=== PATIENT | female | born 1990 | race Caucasian/White ===

== ENCOUNTER 2020-12-06 08:04 | Inpatient (IN) | payer MEDICAID ==
[~2020-12-06] VITALS: Ht 177.8 cm; Wt 84.4 kg
[2020-12-06] MEDS ORDERED: NALOXONE HCL 0.4 MG/ML 1ML VIAL IM PRN (08:30)
[2020-12-06] MEDS ORDERED: METHYLERGONOVINE MALEATE 0.2 MG/ML IM PRN (08:30)
[2020-12-06] MEDS ORDERED: MISOPROSTOL 100MCG TABLET VG SCH (08:30)
[2020-12-06] MEDS ORDERED: CARBOPROST TROMETHAMINE 250 MCG/ML AMPUL IM PRN (08:30)
[2020-12-06] MEDS ORDERED: MINERAL OIL 30ML BOTTLE PO NR (08:30)
[2020-12-06] MEDS ORDERED: LIDOCAINE HCL 1% 20ML VIAL (Pyxis) INJ INFIL SCH (08:30)
[2020-12-06] MEDS ORDERED: BUTORPHANOL TARTRATE 2 MG/ML VIAL IV PRN (08:30)
[2020-12-06] MEDS ORDERED: PENICILLIN G POTASSIUM 5 MMU in DEXT 5% WATER 100 ML IV NR (09:00)
[2020-12-06 10:00] LABS: BASOPHILS % 0.2 % (0.0-2.0); EOSINOPHILS % 1.7 % (0.0-5.0); HEMATOCRIT. 37.3 % (36.0-48.0); HEMOGLOBIN. 12.9 g/dL (12.0-16.0); MEAN CORPUSCULAR VOLUME 89.6 fL (81.0-99.0); MEAN PLATELET VOLUME 9.6 fl (7.4-10.4); MONOCYTES % 8.1 % (2.0-8.0); PLATELET 215 x1000/uL (130-400); RED BLOOD CELL COUNT 4.17 mill/uL (4.2-5.4); RED CELL DISTRIBUTION WIDTH 13.7 % (11.6-14.6)
[2020-12-06 10:10] LABS: INR 0.9; PARTIAL THROMBOPLASTIN TIME 25.9 sec (23.4-31.0); PROTHROMBIN TIME 9.8 sec (9.6-11.0)
[2020-12-06 10:18] LABS: CLARITY URINE CLOUDY (CLEAR); COLOR URINE YELLOW (YELLOW); KETONES URINE NEGATIVE (NEGATIVE); LEUKOCYTE ESTERASE URINE 3+ (NEGATIVE); NITRITE URINE NEGATIVE (NEGATIVE); OCCULT BLOOD URINE NEGATIVE (NEGATIVE); PH URINE 7.5 (4.5-8.0); PROTEIN URINE NEGATIVE (NEGATIVE); SPECIFIC GRAVITY URINE 1.013 (1.005-1.030); UROBILINOGEN URINE 0.2 E.U./dL (0.2-1.0)
[2020-12-06 10:57] LABS: *AMPHETAMINES SCREEN URINE NEGATIVE (NEGATIVE); *BARBITURATES SCREEN URINE NEGATIVE (NEGATIVE); *BENZODIAZEPINES SCREEN URINE NEGATIVE (NEGATIVE); *COCAINE SCREEN URINE NEGATIVE (NEGATIVE); METHADONE URINE SCREEN NEGATIVE (NEGATIVE)
[2020-12-06 10:58] LABS: CANNABINOID URINE SCREEN NEGATIVE (NEGATIVE); OPIATES URINE SCREEN NEGATIVE (NEGATIVE); PHENCYCLIDINE URINE SCREEN NEGATIVE (NEGATIVE)
[2020-12-06] MEDS: DEXT 5%/LR + PITOCIN 20UNITS/L 1,000 ML IV SCH (11:02)
[2020-12-06] MEDS: LACTATED RINGERS 1,000 ML IV SCH ×3 (11:03→23:28)
[2020-12-06 12:57] LABS: HEPATITIS B SURFACE ANTIGEN NEGATIVE
[2020-12-06] MEDS ORDERED: ROPIVACAINE HCL 2MG/ML (0.2%) 200ML BOTTLE IR ONE (21:30)
[2020-12-06] MEDS ORDERED: ROPIVACAINE HCL/PF EPIDURAL 200 ML EPI PRN (21:30)
[2020-12-06] MEDS ORDERED: FENTANYL CITRATE/PF 50MCG/ML 2ML VIAL ONE (21:33)
[2020-12-06] MEDS ORDERED: BUPIVACAINE HCL/PF 0.25% (2.5MG/ML) 10ML ONE (21:33)
[2020-12-06] MEDS ORDERED: SODIUM CHLORIDE 0.9% 10ML VIAL ONE (21:33)
[2020-12-06] MEDS: PENICILLIN G POTASSIUM 2.5 MMU in DEXTROSE 5% WATER 50 ML IV SCH (22:53)
[2020-12-07] MEDS: PENICILLIN G POTASSIUM 2.5 MMU in DEXTROSE 5% WATER 50 ML IV SCH (02:16)
[2020-12-07] MEDS ORDERED: FENTANYL CITRATE/PF 50MCG/ML 2ML VIAL ONE (02:41)
[2020-12-07] MEDS ORDERED: BUPIVACAINE HCL/PF 0.25% (2.5MG/ML) 10ML ONE (02:41)
[2020-12-07] MEDS: DEXT 5%/LR + PITOCIN 20UNITS/L 1,000 ML IV SCH (04:42)
[2020-12-07] MEDS ORDERED: IBUPROFEN 400MG TABLET PO PRN (06:15)
[2020-12-07] MEDS ORDERED: BENZOCAINE/LANOLIN/ALOE VERA SPRAY TOP PRN (06:15)
[2020-12-07] MEDS ORDERED: RHO(D) IMMUNE GLOBULIN 300 MCG/SYR IM PRN (06:15)
[2020-12-07] MEDS ORDERED: DEXT 5%/LR + PITOCIN 20UNITS/L 1,000 ML IV SCH (06:15)
[2020-12-07] MEDS ORDERED: ACETAMINOPHEN WITH CODEINE 300/30MG TABLET PO PRN (06:15)
[2020-12-07] MEDS ORDERED: BISACODYL 10MG SUPP PR PRN (06:15)
[2020-12-07] MEDS ORDERED: GLYCERIN/WITCH HAZEL LEAF MEDICATED PAD TOP PRN (06:15)
[2020-12-07] MEDS ORDERED: DIPHENHYDRAMINE 25MG CAPSULE PO PRN (06:15)
[2020-12-07] MEDS ORDERED: HEMORRHOIDAL SUPP PR PRN (06:15)
[2020-12-07 06:35] VITALS: BP 106/53
[2020-12-07] MEDS: IBUPROFEN 800MG TABLET PO PRN ×2 (11:04→17:44)
[2020-12-07] MEDS: PRENATAL VIT/FE FUMARATE/FA TABLET PO SCH (11:04)
[2020-12-07 18:14] VITALS: BP 109/63
[2020-12-07 19:45] VITALS: BP 106/68
[2020-12-07] MEDS ORDERED: DOCUSATE SODIUM 100MG CAPSULE PO SCH (21:00)
[2020-12-07] MEDS: MAGNESIUM/ALUMINUM HYDROXIDE/SIMETHICONE 30ML UDC PO SCH (21:51)
[2020-12-07] MEDS: SIMETHICONE 80MG TABLET CHEW PO SCH (21:53)
[2020-12-07 23:45] VITALS: BP 108/67
[2020-12-08 07:03] LABS: BASOPHILS % 0.3 % (0.0-2.0); EOSINOPHILS % 2.6 % (0.0-5.0); HEMATOCRIT. 35.6 % (36.0-48.0); HEMOGLOBIN. 12.2 g/dL (12.0-16.0); LYMPHOCYTES % 30.9 % (20.0-50.0); MEAN CORPUSCULAR HEMOGLOBIN 31.4 pg (28.0-32.0); MEAN CORPUSCULAR VOLUME 91.7 fL (81.0-99.0); MEAN PLATELET VOLUME 9.7 fl (7.4-10.4); MONOCYTES % 6.6 % (2.0-8.0); NEUTROPHILS % 59.6 % (40.0-76.0); PLATELET 185 x1000/uL (130-400); RED BLOOD CELL COUNT 3.88 mill/uL (4.2-5.4); RED CELL DISTRIBUTION WIDTH 13.9 % (11.6-14.6)
[2020-12-08] MEDS ORDERED: FERROUS SULFATE 325MG TABLET PO SCH (07:30)
[2020-12-08 07:45] VITALS: BP 111/64
[2020-12-08] MEDS: MAGNESIUM/ALUMINUM HYDROXIDE/SIMETHICONE 30ML UDC PO SCH (08:19)
[2020-12-08] MEDS: PRENATAL VIT/FE FUMARATE/FA TABLET PO SCH (08:20)
[2020-12-08] MEDS: SIMETHICONE 80MG TABLET CHEW PO SCH (08:20)
[2020-12-08] MEDS: IBUPROFEN 800MG TABLET PO PRN (08:21)
== END 2020-12-08 12:00 | disposition home or self-care (01) | DRG 560 ==
LOC: OBSVTOIN 08:04 → 8 EST LDRP 08:04 → 8EST 12-07 08:00
PROVIDERS: ADMIT Obstetrics & Gynecology; ATTEND Obstetrics & Gynecology
PROC: 10E0XZZ Delivery of Products of Conception, External Approach (ICD-10-PCS; principal; 2020-12-08)
PROC: 0W8NXZZ Division of Female Perineum, External Approach (ICD-10-PCS; 2020-12-08)
PROC: 3E0R3BZ Introduction of Anesthetic Agent into Spinal Canal, Percutaneous Approach (ICD-10-PCS; 2020-12-08)
PROC: 00HU33Z Insertion of Infusion Device into Spinal Canal, Percutaneous Approach (ICD-10-PCS; 2020-12-08)
DX: O41.03X0 Oligohydramnios, third trimester, not applicable or unspecified (principal); Z37.0 Single live birth; Z3A.39 39 weeks gestation of pregnancy
CPT/HCPCS: 36415; 76805; 76818; 80305; 81003; 85025; 86592; 86703; 86762; 86850; 86900; 87340; 99281; G0378; J2540; J2590; J2795; J3010; J3490; J7060; A4315